=== PATIENT | male | born 1970 | race Caucasian/White ===

== ENCOUNTER 2018-12-13 08:25 | Emergency (ER) ==
[2018-12-13 08:30] VITALS: BP 160/94; TEMP 99.1; BMI 35.1
--- NOTE | 2018-12-13 09:36 | US ---
EXAM: Bilateral lower extremity venous Doppler History: Bilateral lower extremity pain. Technique: Multiple sonographic images through the bilateral lower extremities were obtained. Color duplex Doppler was used to interrogate vascular flow. Findings: The bilateral common femoral, greater saphenous, profunda, superficial femoral, popliteal, peroneal, posterior tibial and anterior tibial veins demonstrate spontaneous flow with normal compre ssion and normal augmentation. Impression: No sonographic evidence for deep venous thrombosis
--- NOTE | 2018-12-13 10:10 | ED.PDOC ---
General ED Provider: Dr. OLAMIDE CARMEN Chief Complaint: Extremity Swelling/Pain Stated Complaint: bilateral lower ext pain Time Seen by Physician: 08:30 Mode of Arrival: Walk-In Information Source: Patient, Other [facility] Nursing and Triage Documentation Reviewed and Agree: Yes Does patient meet sepsis criteria?: No System Inflammatory Response Syndrome: Not Applicable Sepsis Protocol: For patient's 13 years and over: Temp is 96.8 and below OR 101 and greater Pulse >90 BPM Resp >20/minute Acutely Altered Mental Status Are patient's symptoms suggestive of a new infection, such as: -Pneumonia -Skin, Soft Tissue -Endocarditis -UTI -Bone, Joint Infection -Implantable Device -Acute Abdominal Infection -Wound Infection -Meningitis -Blood Stream Catheter Infection -Unknown Review of Systems - Review Of Systems Constitutional: Reports: No symptoms Eyes: Reports: No symptoms Ears, Nose, Mouth, Throat: Reports: No symptoms Respiratory: Reports: No symptoms Cardiac: Reports: No symptoms GI: Reports: No symptoms : Reports: No symptoms Musculoskeletal: Reports: Other (leg pain) Skin: Reports: No symptoms Neurological: Reports: No symptoms Endocrine: Reports: No symptoms Hematologic/Lymphatic: Reports: No symptoms All Other Systems: Reviewed and Negative Past Medical History - Past Medical History Previously Healthy: Yes Endocrine: Reports: None Cardiovascular: Reports: None Respiratory: Reports: None Hematological: Reports: None Gastrointestinal: Reports: None Genitourinary: Reports: None Neuro/Psych: Reports: None Musculoskeletal: Reports: None Cancer: Reports: None - Surgical History General Surgical History: Reports: Unknown - Family History Family History: Reports: Unknown - Social History Smoking Status: Former smoker Hx Substance Use: Yes (see above) Alcohol Screening: None Physical Exam - Physical Exam Appearance: Well-appearing, No pain distress, Well-nourished Eyes: BRUCE, EOMI, Conjunctiva clear ENT: Ears normal, Nose normal, Oropharynx normal Respiratory: Airway patent, Breath sounds clear, Breath sounds equal, Respirations nonlabored Cardiovascular: RRR, Pulses normal, No rub, No murmur GI/: Soft, Nontender, No masses, Bowel sounds normal, No Organomegaly Musculoskeletal: Normal strength, ROM intact, No edema, No calf tenderness Skin: Warm, Dry, Normal color Neurological: Sensation intact, Motor intact, Reflexes intact, Cranial nerves intact, Alert, Oriented Psychiatric: Affect appropriate, Mood appropriate Interpretation - Radiology Interpretation Radiology Interpretation By: Radiologist Radiology Results: No acute changes Critical Care Note - Critical Care Note Total Time (mins): 0 Course - Course Hematology/Chemistry: 12/13/18 09:25 12/13/18 09:25 Orders, Labs, Meds: Lab Review 12/13/18 12/13/18 09:25 09:25 WBC 5.49 RBC 5.07 Hgb 15.4 Hct 44.9 MCV 88.6 MCH 30.4 MCHC 34.3 RDW Coeff of [place] 14.2 Plt Count 116 L Immature Gran % (Auto) 0.4 Neut % (Auto) 52.2 Lymph % (Auto) 32.8 [place] % (Auto) 12.2 H Eos % (Auto) 2.0 Baso % (Auto) 0.4 Immature Gran # (Auto) 0.0 Neut # (Auto) 2.9 Lymph # (Auto) 1.8 [place] # (Auto) 0.7 Eos # (Auto) 0.1 Baso # (Auto) 0.0 Sodium 138.0 Potassium 3.82 Chloride 101.7 Carbon Dioxide 28.0 Anion Gap 12.12 BUN 16.1 Creatinine 0.89 Estimated GFR (MDRD) 91.00 BUN/Creatinine Ratio 18.08 Glucose 97.0 Calcium 8.64 Total Bilirubin 0.79 AST 68.7 H ALT 76.2 H Alkaline Phosphatase 58.6 Total Protein 7.13 Albumin 4.08 Globulin 3.05 Albumin/Globulin Ratio 1.33 Orders Category Date Time Status CBC W/ AUTO DIFF Stat LAB 12/13/18 09:25 Completed COMPREHENSIVE METABOLIC PANEL Stat LAB 12/13/18 09:25 Completed U/S VENOUS SCAN ERIKA LEGS Stat RADS 12/13/18 08:43 Completed Vital Signs: Temp Pulse Resp BP Pulse Ox 12/13/18 08:28 99.1 F 96 H 20 160/94 H 97 Departure - Departure Time of Disposition: 10:09 (banormal lf is due to hep c ) Disposition: HOME SELF-CARE Discharge Problem: Leg pain, bilateral Instructions: Leg Pain (ED) Condition: Good Pt referred to PMD for follow-up: Yes IPMP verified?: No Additional Instructions: Please call your Family Physician as soon as possible to schedule a follow-up appointment. Allergies/Adverse Reactions: Allergies ampicillin Adverse Reaction (Verified 12/13/18 08:30) cephalexin monohydrate [From Zoombu] Adverse Reaction (Verified 12/13/18 08:30) Penicillins Adverse Reaction (Verified 12/13/18 08:30) Home Medications: Ambulatory Orders 1 [No Reported Medications] 12/13/18
== END 2018-12-13 10:12 | disposition home or self-care (01) ==
LOC: ED 08:25
DX: M79.605 Pain in left leg (principal); M79.604 Pain in right leg; M79.89 Other specified soft tissue disorders
CPT/HCPCS: 36415; 80053; 85025; 99283

== ENCOUNTER 2023-04-21 09:04 | Observation (INO) ==
--- NOTE | 2023-04-21 09:25 | ED.PDOC ---
General ED Provider: Dr. CARMELLA ROMAN MD Chief Complaint: Extremity Swelling/Pain Stated Complaint: swelling 52-year-old male presents the emergency department for evaluation of generalized swelling. 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 Reports sobriety from drugs, alcohol and all other vices for many years. Reports in the past 2 months he has gained 40 pounds. Reports that his eyes are getting sunken in, he is short of breath with any exertion. States that his legs are swollen to the point that he cannot wear shoes and his leg skin is cracking. Reports intermittent scrotal pain and swelling. States that his abdomen is markedly distended and this is all new for him. States that he has intermittent black stools but otherwise has yellow watery stools. Has not had a formed stool for weeks. Reports that he is generally just not feeling well. Does not have a primary care provider. Is seeing an oncologist in [place]. Time Seen by Provider: 04/21/23 09:20 Mode of Arrival: Walk-In Information Source: Patient Exam Limitations: No limitations Nursing and Triage Documentation Reviewed and Agree: Yes Review of Systems Review Of Systems Constitutional: Reports No symptoms, Malaise and Weakness Cardiac: Reports Edema GI: Reports Abdomen distended All Other Systems: Reviewed and Negative [facility] Medical History Hepatitis C virus B19.20 - Unspecified viral hepatitis C without hepatic coma (ICD-10) Social History Smoking and tobacco status: Current some day smoker Surgical History Status post appendectomy Z90.49 - Acquired absence of other specified parts of digestive tract (ICD- 10) Physical Exam Physical Exam Appearance: Reports Well-appearing Ill-appearing: Mild Pain Distress: None Eyes: Reports EOMI ENT: Reports Oropharynx normal Neck: Supple Respiratory: Reports Airway patent Cardiovascular: Reports RRR and Pulses normal GI/: Reports Other (Marked abdominal distention) Musculoskeletal: Reports Edema Skin: Reports Warm and Dry Neurological: Reports Cranial nerves intact, Alert and Oriented Psychiatric: Reports Affect appropriate Interpretation EKG Interpretation EKG Interpretation By: ED Physician Time of EKG #1: 09:50 Rate: Normal Rhythm: Sinus Ectopy: None [employer]: NL ST Segment: Normal Critical Care Note Critical Care Note Total Critical Care Time (mins): 0 Course Course 04/21/23 09:32 04/21/23 09:32 Orders, Labs, Meds: Lab Review 04/21/23 04/21/23 04/21/23 09:32 09:35 10:45 WBC 4.11 L RBC 3.76 L Hgb 12.4 L Hct 37.6 L MCV 100.0 H MCH 33.0 H MCHC 33.0 RDW Coeff of [place] 15.1 H Plt Count 51 L Immature Gran % (Auto) 0.2 Neut % (Auto) 55.2 Lymph % (Auto) 26.8 [place] % (Auto) 13.9 H Eos % (Auto) 3.4 Baso % (Auto) 0.5 Neut # (Auto) 2.3 Lymph # (Auto) 1.1 [place] # (Auto) 0.6 Eos # (Auto) 0.1 Baso # (Auto) 0.0 Immature Gran # (Auto) 0.0 PT 13.6 H INR 1.32 Sodium 136.0 Potassium 4.01 Chloride 105.8 Carbon Dioxide 26.5 Anion Gap 7.71 BUN 10.7 Creatinine 0.78 Estimated GFR (MDRD) 105.00 BUN/Creatinine Ratio 13.71 Glucose 93.9 Lactic Acid 0.98 Calcium 7.89 L Total Bilirubin 3.50 H AST 119.3 H ALT 51.2 H Alkaline Phosphatase 91.9 Troponin I < 0.012 NT-Pro-B Natriuret Pep 204 Total Protein 6.70 Albumin 2.97 L Globulin 3.73 Albumin/Globulin Ratio 0.79 Urine Color Elsi Urine Clarity Clear Urine pH 6.0 Ur Specific [place] 1.025 Urine Protein Negative Urine Glucose (UA) Negative Urine Ketones Trace H Urine Blood Negative Urine Nitrite Negative Urine Bilirubin 1+ H Urine Urobilinogen 0.2 Ur Leukocyte Esterase Negative Urine Microscopic WBC 0-2 Ur Squamous Epith Cells 0-2 SARS CoV-2 RNA Rapid ARVIN Negative Orders Category Date Time Status ADMIT PATIENT INPATIENT .TO [facility] (MONITORED BED) ADMISSION 04/21/23 11:18 Active EKG-(ED ONLY) Stat CARDIO 04/21/23 09:20 Completed NPO REMINDER: IMAGING ONCE CARE 04/21/23 10:35 Completed TELEMETRY MONITORING TELE CARE 04/21/23 11:18 Active ED IV/MEDIPORT/POWERPORT .ONCE EMERGENCY 04/21/23 10:37 Active CBC W/ AUTO DIFF Stat LAB 04/21/23 09:32 Completed COMPREHENSIVE METABOLIC PANEL Stat LAB 04/21/23 09:32 Completed COVID [SARS COV-2 RNA RAPID ARVIN] Stat LAB 04/21/23 10:45 Completed ED PROBNP [NT-PROBNP(ED)] Stat LAB 04/21/23 09:32 Completed LACTIC ACID Stat LAB 04/21/23 09:32 Completed PT WITH INR Stat LAB 04/21/23 09:32 Completed TROPONIN I Stat LAB 04/21/23 09:32 Completed UA [URINALYSIS C & S IF INDICATED] Stat LAB 04/21/23 09:35 Completed 0.9 % Sodium Chloride [Saline Flush] Meds 04/21/23 10:37 Active 1 syr IVF PRN PRN Furosemide [Lasix] Meds 04/21/23 10:37 Discontinued 40 mg IVP ONCE STA Spironolactone [Aldactone] Meds 04/21/23 10:37 Discontinued 25 mg PO ONCE ONE CHEST, 2 VIEWS PA & LAT Stat RADS 04/21/23 09:[address] ABDOMEN/PELVIS W CONTRAST Stat RADS 04/21/23 10:35 Completed Medications Generic Name Dose Route Start Last Admin Trade Name Freq PRN Reason Stop Dose Admin Sodium Chloride 1 syr 04/21/23 10:37 04/21/23 11:07 0.9% Sodium Chloride 10 Ml Disp.Syrin IVF 1 syr PRN PRN Administration To flush IV Discontinued Medications Generic Name Dose Route Start Last Admin Trade Name Freq PRN Reason Stop Dose Admin Furosemide 40 mg 04/21/23 10:37 04/21/23 11:07 Furosemide Inj 40 Mg/4 Ml Vial IVP 04/21/23 10:38 40 mg ONCE STA Administration Spironolactone 25 mg 04/21/23 10:37 04/21/23 11:09 Spironolactone 25 Mg Tablet PO 04/21/23 10:38 25 mg ONCE ONE Administration Laboratory evaluation shows findings consistent with advancing liver disease. Patient with a bilirubin of 3.5, elevated transaminases. Patient with persistent thrombocytopenia. Normal INR. No evidence of infection. X-ray of the chest is clear. Cardiac biomarkers are also normal, EKG is reassuring. 10:29 AM Case was discussed with factory superintendent Dr. Mitchell at [facility]. His recommendation is for a regimen of furosemide and spironolactone as well as setting up outpatient follow-up. 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 We will contact the clinic to assist with outpatient follow-up. 10:38 AM Case was discussed with local hospitalist team. They feel like the patient would benefit from paracentesis. We do not have capacity to perform that in our facility. They recommend transfer to a facility with higher level of care. We do have interventional radiology but they do not work again until Tuesday. Additionally we do not have specimen collection containers or the ability to obtain the fluid at our facility. Patient was given furosemide and spironolactone in the emergency department. Attempting to arrange transfer to outlying facility. 10:39 AM [facility] contacted for transfer. 10:43 AM While on the phone with [facility] [place] initiating transfer, the hospitalist reviewed the case with the overseeing physician who believes the patient would be okay to manage at our facility with diuresis. We will cancel attempts to transfer to [facility] [place]. She would like him to have a CT of his abdomen prior to admission. CT is been performed at this time. 11:22 AM CTA negative for acute pathology. Shows cirrhosis, ascites, portal hypertension. Patient to be admitted to our facility for diuresis. No acute abnormalities identified right now that require further intervention outside of aforementioned diuresis. Vital Signs: Temp Pulse Resp BP Pulse Ox 04/21/23 09:08 98.8 F 97 18 156/99 H 99 Discharge Plan Discharge Patient Disposition: ADMITTED INPATIENT Discharge Problem: Ascites, Cirrhosis Prescriptions: No Action No Reported Medications Did you review [place] COLOR ADVISER for ALL controlled substances?: Not Applicable ED Provider: CARMELLA ROMAN Physician Progress Note: []
[2023-04-21 09:46] LABS: BASOPHILS % (AUTO) 0.5 % (0.0-3.0); EOSINOPHILS # (AUTO) 0.1 K/ul (0.0-0.7); EOSINOPHILS % (AUTO) 3.4 % (0.0-7.0); HEMATOCRIT 37.6 % (42.0-52.0); HEMOGLOBIN 12.4 g/dl (14.0-18.0); IMMATURE GRANULOCYTE % (AUTO) 0.2 % (0.0-5.0); LYMPHOCYTES # (AUTO) 1.1 K/uL (0.60-3.4); LYMPHOCYTES % (AUTO) 26.8 (10.0-50.0); MONOCYTES # (AUTO) 0.6 K/uL (0.4-2.0); MONOCYTES % (AUTO) 13.9 (0-10); NEUTROPHILS # (AUTO) 2.3 K/ul (2.0-6.9); NEUTROPHILS % (AUTO) 55.2 % (42.2-75.2); PLATELET COUNT 51 10^3/uL (140-440); RDW COEFFICIENT OF VARIATION 15.1 % (11.6-14.8); RED BLOOD COUNT 3.76 10^6/ul (4.70-6.10); WHITE BLOOD COUNT 4.11 K/ul (4.2-10.2)
--- NOTE | 2023-04-21 09:52 | DI ---
EXAM: CHEST RADIOGRAPH TECHNIQUE: Two views. Frontal and lateral. HISTORY: Cough. COMPARISON: None. FINDINGS: The lungs are clear. The heart size is normal. Osseous structures are unremarkable IMPRESSION: 1. Normal Exam.
[2023-04-21 09:55] LABS: BILIRUBIN,URINE 1+ (NEGATIVE); CLARITY,URINE Clear (CLEAR); COLOR,URINE Amber (YELLOW); GLUCOSE, URINE (UA) Negative (NEGATIVE); KETONES,URINE Trace (NEGATIVE); LEUKOCYTE ESTERASE ,URINE Negative (NEGATIVE); NITRITE,URINE Negative (NEGATIVE); PROTEIN,URINE Negative (NEGATIVE); URINE, BLOOD Negative (NEGATIVE); UROBILINOGEN,URINE 0.2 (0.2)
[2023-04-21 09:56] LABS: ALANINE AMINOTRANSFERASE 51.2 U/L (0-50); ALBUMIN 2.97 g/dL (3.5-5.0); ALKALINE PHOSPHATASE 91.9 U/L (38-126); ASPARTATE AMINO TRANSFERASE 119.3 U/L (17-59); BLOOD UREA NITROGEN 10.7 mg/dL (9-20); CALCIUM 7.89 mg/dL (8.4-10.2); CARBON DIOXIDE 26.5 mmol/L (22-30.0); CHLORIDE 105.8 mmol/L (98-107); CREATININE 0.78 mg/dL (0.60-1.10); GLUCOSE 93.9 mg/dL (74-106); POTASSIUM 4.01 mmol/L (3.5-5.1)
[2023-04-21 10:01] LABS: SQUAMOUS EPITHELIAL CELL,UR 0-2 (0-5); URINE WBC, MICROSCOPIC 0-2 (0-2)
[2023-04-21 10:08] LABS: TROPONIN I < 0.012 ng/ml (0.0000-0.120)
[2023-04-21 10:13] LABS: PROTHROMBIN TIME 13.6 SEC (9.3-11.0)
[2023-04-21] MEDS ORDERED: ALDACTONE PO ONE (10:37)
[2023-04-21] MEDS ORDERED: LASIX IVP STA (10:37)
[2023-04-21 11:21] LABS: SARS COV-2 RNA RAPID NAAT NEGATIVE (NEGATIVE)
--- NOTE | 2023-04-21 11:21 | CT ---
EXAM: CT ABDOMEN AND PELVIS WITH CONTRAST TECHNIQUE: CT acquisition of the abdomen and pelvis from the lower thorax through the pelvis followin g IV contrast administration. 2-D coronal and sagittal reformatted images were obtained from the axi al source images. IV Contrast: 50 mL of Omnipaque 350. Oral Contrast: None. CT Dose Reduction Techniques Performed: Yes. COMPARISON: 02/01/2023 HISTORY: Abdominal distension FINDINGS: LUNG BASES: No abnormality identified. LIVER: The liver is heterogeneous and nodular, consistent with cirrhosis. A recanalized periumbilica l vein and multiple upper abdominal varices are identified, including para esophageal varices or GALLBLADDER: No abnormality is identified. PANCREAS: No mass or evidence of pancreatitis. No duct dilation. SPLEEN: The the spleen measures 17 cm in craniocaudal diameter. ADRENALS: Normal. KIDNEYS/URETERS: No suspicious mass, stone, or hydronephrosis. The left multifocal renal cortical thi nning is identified. GI TRACT: No bowel wall thickening or dilation. The appendix is not identified. URINARY BLADDER: Normal. REPRODUCTIVE ORGANS: No abnormality identified. LYMPH NODES: No lymphadenopathy. VASCULATURE: No significant aortic aneurysm. The visualized portal and mesenteric veins appear with in normal limits. The IVC is normal. OTHER: Small ascites is identified. OSSEOUS/SOFT TISSUES: No suspicious osteolytic, or osteoblastic lesion. No acute fracture. IMPRESSION: 1. No acute findings in the abdomen or pelvis. 2. Cirrhosis with stigmata of portal hypertension. All CT scans are performed using dose optimization techniques as appropriate to the performed exam an d include at least one of the following: Automated exposure control, adjustment of the mA and/or kV according t o size, and the use of iterative reconstruction technique.
[2023-04-21] MEDS ORDERED: TYLENOL PO PRN (12:16)
[2023-04-21 13:02] VITALS: BMI 38.5
[2023-04-21] MEDS: LASIX IVP SCH ×2 (13:30→20:06)
--- NOTE | 2023-04-21 13:41 | PCM ---
Date of Service Date Seen by Provider: 04/21/23 Time Seen by Provider: 13:10 Admit Day/Time Admission Date: 04/21/23 Reason for Admission Chief Complaint: ASCITES,LIVER CIRRHOSIS Hospital Provider Hospital Provider[facility] History of Present Illness History of Present Illness: 52 yo male presented to the ER today with complaints of worsening swelling. 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 States the only specialist he is seeing is an [facility] which is why he was here today to have some lab work done and decided he needed to be seen in the ER. He does not have a PCP and does not take any regular medications including diuretics. Had previously been living in a camper and now resides with his 91 yo grandmother that he reports is not a good situation. States he has constant pain in his back and abdomen. Has gained 40 lbs in a 2 month period. He was seen in our ER back in January in which he was setup with oncology at that time due to thrombocytopenia. He denies SOB, fever, chest pain, or other symptoms. Case Discussed With Case Discussed With: Patient's case was discussed with the ER Physicians, Dr. Anderson. [facility] Medical History Hepatitis C virus B19.20 - Unspecified viral hepatitis C without hepatic coma (ICD-10) Surgical History Status post appendectomy Z90.49 - Acquired absence of other specified parts of digestive tract (ICD- 10) Family History (Updated 04/21/23 @ 12:19 by JORDANA HO RN) Mother Aortic aneurysm and dissection FATHER Stroke Social History (Updated 04/21/23 @ 12:20 by JORDANA HO RN) Smoking and tobacco status: Former smoker Alcohol intake: former Allergies Allergies Allergy/AdvReac Type Severity Reaction Status Date / Time ampicillin AdvReac Verified 04/21/23 09:21 cephalexin monohydrate AdvReac Verified 04/21/23 09:21 [From Keflex] Penicillins AdvReac Verified 04/21/23 09:21 Current Medications Home Medications 1 [No Reported Medications] 04/21/23 [History Confirmed 04/21/23 Last Taken Unknown] Home Acetaminophen (Acetaminophen 325 Mg Tablet) 650 mg PO Q4H PRN PRN Reason: Mild Pain Furosemide (Furosemide Inj 40 Mg/4 Ml Vial) 40 mg IVP Q8HR [facility] Sodium Chloride (0.9% Sodium Chloride 10 Ml Disp.Syrin) 1 syr IVF PRN PRN PRN Reason: To flush IV Last Admin: 04/21/23 11:07 Dose: 1 syr Spironolactone (Spironolactone 25 Mg Tablet) 50 mg PO DAILY [facility] Tobramycin Sulfate (Tobramycin Sulfate 5 Ml Opth Meggan) 2 drop EACHEYE Q4HR ZULEYMA Stop: 04/24/23 16:59 Discontinued Medications Furosemide (Furosemide Inj 40 Mg/4 Ml Vial) 40 mg IVP ONCE STA Stop: 04/21/23 10:38 Last Admin: 04/21/23 11:07 Dose: 40 mg Spironolactone (Spironolactone 25 Mg Tablet) 25 mg PO ONCE ONE Stop: 04/21/23 10:38 Last Admin: 04/21/23 11:09 Dose: 25 mg Review of Systems Constitutional: Reports Fatigue, Recent Weight Gain (40 lbs, 2 month period) and Weakness Head: Reports Normocephalic and Atraumatic Eyes: Reports No symptoms Ears: Reports No symptoms Nose: Reports No symptoms Mouth: Reports No symptoms Throat: Reports No symptoms Cardiovascular: Reports Edema (abdomen, legs) Respiratory: Reports No symptoms Gastrointestinal: Reports Diarrhea and Abdominal pain Genitourinary: Reports No Symptoms Musculoskeletal: Reports No symptoms Endocrine: Reports No symptoms Hematology: Reports No symptoms Immunology: Reports No symptoms Neurological: Reports Weakness Psychiatric: Reports No symptoms Physical examination Most Recent Vital Signs: Most Recent Vital Signs Temperature 97.7 F 04/21/23 12:12 Temperature Source Oral 04/21/23 12:12 Temperature Source Infrared 04/21/23 09:08 Pulse Rate 90 04/21/23 12:12 Respiratory Rate 22 H 04/21/23 12:12 Blood Pressure 156/99 H 04/21/23 09:08 Blood Pressure Left Arm 145/86 04/21/23 12:12 Blood Pressure Position Supine 04/21/23 12:12 O2 Sat by Pulse Oximetry 97 04/21/23 12:12 Oxygen Delivery Method Room Air 04/21/23 12:12 Height 5 ft 8 in 04/21/23 12:12 Weight 253 lb 8 oz 04/21/23 12:12 Telemetry Type Remote Telemetry 04/21/23 13:00 Telemetry Monitoring Started 04/21/23 13:00 Telemetry Heart Rate 87 04/21/23 13:00 Telemetry SPO2 97 09/28/15 01:00 EKG [place] Interval 0.13 04/21/23 13:00 EKG QRS Interval 0.07 04/21/23 13:00 Telemetry Strip Reading NSR 04/21/23 13:00 Appearance: Positive No Apparent Distress, Alert and Oriented x3 and Ill- Appearing Skin: Positive Jaundice and Warm HEENT: Positive Normocephalic and PERRLA Neck: Positive Supple and Midline Trachea Chest/Lungs: Positive Symmetrical With Equal Breath Sounds, Clear to Auscultation Bilaterally and Good Air Movement all 4 Lung Baires Heart: Positive RRR and Pulses Normal GI/: Positive Soft, Nontender, Bowel Sounds Normal, Tender and Hepatomegaly Musculoskeletal: Positive Not Examined Extremities: Positive Edema (+2-3 pitting edema), Intact Peripheral Pulses, Stable Joints Without Laxity and Good ROM in All Joints Neurological: Positive Sensation Intact, Motor intact, Reflexes Intact, Alert, Oriented and Muscle Strength 5/5 in Upper and Lower Extremities Bilaterally Psychiatric: Positive Oriented x4, Appropriate Mood, Appropriate Affect, Intact Memory, Good Short-Term Recall, Good Long-Term Recall, Normal Judgement and Normal Insight Labs This Visit Labs This Visit: Labs This Visit 04/21/23 04/21/23 04/21/23 09:32 09:35 10:45 WBC 4.11 L RBC 3.76 L Hgb 12.4 L Hct 37.6 L MCV 100.0 H MCH 33.0 H MCHC 33.0 RDW Coeff of Alvarado 15.1 H Plt Count 51 L Immature Gran % (Auto) 0.2 Neut % (Auto) 55.2 Lymph % (Auto) 26.8 [place] % (Auto) 13.9 H Eos % (Auto) 3.4 Baso % (Auto) 0.5 Neut # (Auto) 2.3 Lymph # (Auto) 1.1 [place] # (Auto) 0.6 Eos # (Auto) 0.1 Baso # (Auto) 0.0 Immature Gran # (Auto) 0.0 PT 13.6 H INR 1.32 Sodium 136.0 Potassium 4.01 Chloride 105.8 Carbon Dioxide 26.5 Anion Gap 7.71 BUN 10.7 Creatinine 0.78 Estimated GFR (MDRD) 105.00 BUN/Creatinine Ratio 13.71 Glucose 93.9 Lactic Acid 0.98 Calcium 7.89 L Total Bilirubin 3.50 H AST 119.3 H ALT 51.2 H Alkaline Phosphatase 91.9 Troponin I < 0.012 NT-Pro-B Natriuret Pep 204 Total Protein 6.70 Albumin 2.97 L Globulin 3.73 Albumin/Globulin Ratio 0.79 Urine Color Elsi Urine Clarity Clear Urine pH 6.0 Ur Specific [place] 1.025 Urine Protein Negative Urine Glucose (UA) Negative Urine Ketones Trace H Urine Blood Negative Urine Nitrite Negative Urine Bilirubin 1+ H Urine Urobilinogen 0.2 Ur Leukocyte Esterase Negative Urine Microscopic WBC 0-2 Ur Squamous Epith Cells 0-2 SARS CoV-2 RNA Rapid ARVIN Negative Imaging Imaging: EXAM: CT ABDOMEN AND PELVIS WITH CONTRAST FINDINGS: LUNG BASES: No abnormality identified. LIVER: The liver is heterogeneous and nodular, consistent with cirrhosis. A recanalized periumbilical vein and multiple upper abdominal varices are identified, including para esophageal varices or GALLBLADDER: No abnormality is identified. PANCREAS: No mass or evidence of pancreatitis. No duct dilation. SPLEEN: The the spleen measures 17 cm in craniocaudal diameter. ADRENALS: Normal. KIDNEYS/URETERS: No suspicious mass, stone, or hydronephrosis. The left multifocal renal cortical thinning is identified. GI TRACT: No bowel wall thickening or dilation. The appendix is not identified. URINARY BLADDER: Normal. REPRODUCTIVE ORGANS: No abnormality identified. LYMPH NODES: No lymphadenopathy. VASCULATURE: No significant aortic aneurysm. The visualized portal and mesenteric veins appear within normal limits. The IVC is normal. OTHER: Small ascites is identified. OSSEOUS/SOFT TISSUES: No suspicious osteolytic, or osteoblastic lesion. No acute fracture. IMPRESSION: 1. No acute findings in the abdomen or pelvis. 2. Cirrhosis with stigmata of portal hypertension. Review Statement Review Statement: I have independently reviewed and interpreted the labs/EKGs/imaging that were ordered by the ER provider. I have reviewed all outside records that are available currently in our EMR including imaging/notes/labs from previous visits. Plan Plan: 1. Fluid retention in setting of cirrhosis with ascites - lasix 40 mg Q8H, spironolactone 50 mg PO daily, checking echo for heart involvement, I&O, daily weight, 1800 fluid restriction with cardiac diet 2. Thrombocytopenia - follows with oncology in [place] 3. Bacterial Conjunctivitis - tobramycin gtts Q4H DVT Prophylaxis: Up with assist Time Spent: Greater than 80 minutes spent with patient, 50% of the time spent with this patient was devoted to counseling and coordination of care. [facility] minutes spent discussing advance care planning. Disposition: Admit to: Med/Surg Observation DNR Discussed Plan of Care with Dr. Mayco Hernandez. Medications Medication Orders: Medications Ordered Category Date Time Status 0.9 % Sodium Chloride [Saline Flush] Meds 04/21/23 10:37 Active 1 syr IVF PRN PRN Acetaminophen [Tylenol] Meds 04/21/23 12:16 Active 650 mg PO Q4H PRN Furosemide [Lasix] Meds 04/21/23 13:00 Active 40 mg IVP Q8HR Spironolactone [Aldactone] Meds 04/22/23 09:00 Active 50 mg PO DAILY
[2023-04-21] MEDS: TOBREX 0.3% EACHEYE SCH ×2 (16:56→20:06)
[2023-04-21 18:13] LABS: AMPHETAMINE SCREEN,URINE NEGATIVE (NEGATIVE); BARBITURATE SCREEN,URINE NEGATIVE (NEGATIVE); BENZODIAZEPINES SCREEN,URINE NEGATIVE (NEGATIVE); CANNABINOID SCREEN,URINE POSITIVE (NEGATIVE); COCAIN SCREEN,URINE NEGATIVE (NEGATIVE); METHADONE URINE SCREEN NEGATIVE (NEGATIVE); METHAMPHETAMINES SCREEN,URINE NEGATIVE (NEGATIVE); OPIATE SCREEN,URINE NEGATIVE (NEGATIVE); OXYCODONE URINE SCREEN NEGATIVE (NEGATIVE); PHENCYCLIDINE SCREEN,URINE NEGATIVE (NEGATIVE); TRICYCLIC ANTIDEPRESSANTS URIN NEGATIVE (NEGATIVE)
[2023-04-22] MEDS: TOBREX 0.3% EACHEYE SCH ×6 (01:50→20:27)
[2023-04-22] MEDS: LASIX IVP SCH ×3 (05:20→20:27)
[2023-04-22 06:42] LABS: BASOPHILS % (AUTO) 0.5 % (0.0-3.0); EOSINOPHILS # (AUTO) 0.1 K/ul (0.0-0.7); EOSINOPHILS % (AUTO) 3.2 % (0.0-7.0); HEMATOCRIT 38.9 % (42.0-52.0); HEMOGLOBIN 13.1 g/dl (14.0-18.0); IMMATURE GRANULOCYTE % (AUTO) 0.2 % (0.0-5.0); LYMPHOCYTES # (AUTO) 1.1 K/uL (0.60-3.4); LYMPHOCYTES % (AUTO) 26.3 (10.0-50.0); MEAN CORPUSCULAR HEMOGLOBIN 33.5 pg (27.0-31.0); MEAN CORPUSCULAR HGB CONC 33.7 (31.8-35.4); MEAN CORPUSCULAR VOLUME 99.5 fl (80.0-94.0); MONOCYTES # (AUTO) 0.4 K/uL (0.4-2.0); MONOCYTES % (AUTO) 10.8 (0-10); NEUTROPHILS # (AUTO) 2.4 K/ul (2.0-6.9); PLATELET COUNT 51 10^3/uL (140-440); RED BLOOD COUNT 3.91 10^6/ul (4.70-6.10); WHITE BLOOD COUNT 4.07 K/ul (4.2-10.2)
[2023-04-22 06:48] LABS: ALANINE AMINOTRANSFERASE 53.5 U/L (0-50); ALBUMIN 3.05 g/dL (3.5-5.0); ALKALINE PHOSPHATASE 104.1 U/L (38-126); BILIRUBIN,TOTAL 4.19 mg/dL (0.2-1.3); BLOOD UREA NITROGEN 11.2 mg/dL (9-20); CALCIUM 8.14 mg/dL (8.4-10.2); CARBON DIOXIDE 30.7 mmol/L (22-30.0); CREATININE 0.94 mg/dL (0.60-1.10); GLUCOSE 92.3 mg/dL (74-106); POTASSIUM 3.44 mmol/L (3.5-5.1); SODIUM 136.8 mmol/L (134.5-145); TOTAL PROTEIN 6.82 g/dL (6.3-8.2)
[2023-04-22] MEDS: ALDACTONE PO SCH (08:47)
--- NOTE | 2023-04-22 10:45 | PCM.PROG ---
Date/Time Seen Date Seen by Provider: 04/22/23 Time Seen by Provider: 08:50 Provider Provider[facility] Chief Complaint Chief Complaint: ASCITES,LIVER CIRRHOSIS Subjective Subjective: Feeling some better today. Reporting pain to R side of abdomen. Has been there for months. States his legs and stomach do not feel as tight. Objective Appearance: Positive No Apparent Distress, Alert and Oriented x3 and Ill- Appearing Chest/Lungs: Positive Symmetrical With Equal Breath Sounds, Clear to Auscultation Bilaterally and Good Air Movement all 4 Lung Baires Heart: Positive RRR and Pulses Normal GI/: Positive Soft, Nontender, Bowel Sounds Normal and Hepatomegaly Neurological: Positive Sensation Intact, Motor intact, Reflexes Intact, Alert, Oriented and Muscle Strength 5/5 in Upper and Lower Extremities Bilaterally Vital Signs Vital Signs: Vital Signs: Last 24 Hours 04/21/23 12:12 04/21/23 13:00 04/21/23 13:09 Temperature 97.7 F Temperature Source Oral Pulse Rate 90 Pulse Rate [Apical] Respiratory Rate 22 H 22 H Blood Pressure Blood Pressure Mean Blood Pressure Left Arm 145/86 Blood Pressure Location Blood Pressure Position Supine O2 Sat by Pulse Oximetry 97 Oxygen Delivery Method Room Air Room Air Height 5 ft 8 in Weight 253 lb 8 oz Telemetry Type Remote Telemetry Telemetry Monitoring Started Telemetry Heart Rate 87 EKG PA Interval 0.13 EKG QRS Interval 0.07 Telemetry Strip Reading NSR 04/21/23 14:00 04/21/23 14:00 04/21/23 15:00 Temperature 97.7 F Temperature Source Oral Pulse Rate 99 Pulse Rate [Apical] Respiratory Rate 16 Blood Pressure 146/84 H Blood Pressure Mean 104 Blood Pressure Left Arm Blood Pressure Location Left Arm Blood Pressure Position Supine O2 Sat by Pulse Oximetry 98 Oxygen Delivery Method Room Air Room Air Room Air Height Weight Telemetry Type Telemetry Monitoring Telemetry Heart Rate EKG PA Interval EKG QRS Interval Telemetry Strip Reading 04/21/23 16:00 04/21/23 17:00 04/21/23 18:00 Temperature 97.9 F Temperature Source Oral Pulse Rate 89 Pulse Rate [Apical] Respiratory Rate 17 Blood Pressure 146/80 H Blood Pressure Mean 102 Blood Pressure Left Arm Blood Pressure Location Left Arm Blood Pressure Position Supine O2 Sat by Pulse Oximetry 96 Oxygen Delivery Method Room Air Room Air Room Air Height Weight Telemetry Type Telemetry Monitoring Telemetry Heart Rate EKG PA Interval EKG QRS Interval Telemetry Strip Reading 04/21/23 18:00 04/21/23 19:00 04/21/23 19:00 Temperature Temperature Source Pulse Rate Pulse Rate [Apical] Respiratory Rate Blood Pressure Blood Pressure Mean Blood Pressure Left Arm Blood Pressure Location Blood Pressure Position O2 Sat by Pulse Oximetry Oxygen Delivery Method Room Air Room Air Height Weight Telemetry Type Remote Telemetry Telemetry Monitoring Continues Telemetry Heart Rate 101 H EKG PA Interval 0.18 EKG QRS Interval 0.[address] 04/21/23 20:00 04/21/23 20:00 04/21/23 21:00 Temperature Temperature Source Pulse Rate Pulse Rate [Apical] 88 Respiratory Rate 18 Blood Pressure Blood Pressure Mean Blood Pressure Left Arm Blood Pressure Location Blood Pressure Position O2 Sat by Pulse Oximetry Oxygen Delivery Method Room Air Room Air Room Air Height Weight Telemetry Type Telemetry Monitoring Telemetry Heart Rate EKG PA Interval EKG QRS Interval Telemetry Strip Reading 04/21/23 21:30 04/21/23 22:00 04/21/23 23:00 Temperature 98.0 F Temperature Source Temporal Artery Scan Pulse Rate 88 Pulse Rate [Apical] Respiratory Rate 18 Blood Pressure 135/89 Blood Pressure Mean 104 Blood Pressure Left Arm Blood Pressure Location Left Arm Blood Pressure Position Supine O2 Sat by Pulse Oximetry 96 Oxygen Delivery Method Room Air Room Air Room Air Height Weight Telemetry Type Telemetry Monitoring Telemetry Heart Rate EKG PA Interval EKG QRS Interval Telemetry Strip Reading 04/22/23 00:00 04/22/23 00:51 04/22/23 00:58 Temperature Temperature Source Pulse Rate Pulse Rate [Apical] Respiratory Rate Blood Pressure Blood Pressure Mean Blood Pressure Left Arm Blood Pressure Location Blood Pressure Position O2 Sat by Pulse Oximetry Oxygen Delivery Method Room Air Room Air Height Weight Telemetry Type Remote Telemetry Telemetry Monitoring Continues Telemetry Heart Rate 81 EKG PA Interval 0.15 EKG QRS Interval 0.07 Telemetry Strip Reading SR 04/22/23 01:57 04/22/23 02:00 04/22/23 03:00 Temperature 98.3 F Temperature Source Temporal Artery Scan Pulse Rate 92 Pulse Rate [Apical] Respiratory Rate 20 Blood Pressure 126/67 Blood Pressure Mean 86 Blood Pressure Left Arm Blood Pressure Location Right Arm Blood Pressure Position Supine O2 Sat by Pulse Oximetry 99 Oxygen Delivery Method Room Air Room Air Room Air Height Weight Telemetry Type Telemetry Monitoring Telemetry Heart Rate EKG PA Interval EKG QRS Interval Telemetry Strip Reading 04/22/23 04:00 04/22/23 05:00 04/22/23 05:24 Temperature 98.0 F Temperature Source Oral Pulse Rate 90 Pulse Rate [Apical] Respiratory Rate 18 Blood Pressure 145/82 H Blood Pressure Mean 103 Blood Pressure Left Arm Blood Pressure Location Left Arm Blood Pressure Position Supine O2 Sat by Pulse Oximetry 95 Oxygen Delivery Method Room Air Room Air Room Air Height Weight Telemetry Type Telemetry Monitoring Telemetry Heart Rate EKG PA Interval EKG QRS Interval Telemetry Strip Reading 04/22/23 05:25 04/22/23 05:56 04/22/23 07:00 Temperature Temperature Source Pulse Rate Pulse Rate [Apical] Respiratory Rate Blood Pressure Blood Pressure Mean Blood Pressure Left Arm Blood Pressure Location Blood Pressure Position O2 Sat by Pulse Oximetry Oxygen Delivery Method Room Air Height Weight 248 lb 1 oz Telemetry Type Remote Telemetry Telemetry Monitoring Continues Telemetry Heart Rate 89 EKG PA Interval 0.14 EKG QRS Interval 0.06 Telemetry Strip Reading SR 04/22/23 07:00 04/22/23 08:00 04/22/23 08:00 Temperature Temperature Source Pulse Rate Pulse Rate [Apical] Respiratory Rate Blood Pressure Blood Pressure Mean Blood Pressure Left Arm Blood Pressure Location Blood Pressure Position O2 Sat by Pulse Oximetry Oxygen Delivery Method Room Air Room Air Room Air Height Weight Telemetry Type Telemetry Monitoring Telemetry Heart Rate EKG PA Interval EKG QRS Interval Telemetry Strip Reading 04/22/23 08:43 04/22/23 09:00 04/22/23 09:42 Temperature Temperature Source Pulse Rate Pulse Rate [Apical] Respiratory Rate Blood Pressure Blood Pressure Mean Blood Pressure Left Arm Blood Pressure Location Blood Pressure Position O2 Sat by Pulse Oximetry Oxygen Delivery Method Room Air Room Air Height 5 ft 8 in Weight 248 lb 1 oz Telemetry Type Telemetry Monitoring Telemetry Heart Rate EKG PA Interval EKG QRS Interval Telemetry Strip Reading 04/22/23 09:42 Temperature 97.8 F Temperature Source Tympanic Pulse Rate 90 Pulse Rate [Apical] Respiratory Rate 18 Blood Pressure 125/74 Blood Pressure Mean 91 Blood Pressure Left Arm Blood Pressure Location Left Arm Blood Pressure Position Sitting O2 Sat by Pulse Oximetry 96 Oxygen Delivery Method Room Air Height Weight Telemetry Type Telemetry Monitoring Telemetry Heart Rate EKG PA Interval EKG QRS Interval Telemetry Strip Reading Lab Results Lab Results: Lab Results: Last 24 Hours 04/22/23 04/21/23 04/21/23 05:51 10:45 09:35 WBC 4.07 L RBC 3.91 L Hgb 13.1 L Hct 38.9 L MCV 99.5 H MCH 33.5 H MCHC 33.7 RDW Coeff of Alvarado 15.0 H Plt Count 51 L Immature Gran % (Auto) 0.2 Neut % (Auto) 59.0 Lymph % (Auto) 26.3 [place] % (Auto) 10.8 H Eos % (Auto) 3.2 Baso % (Auto) 0.5 Neut # (Auto) 2.4 Lymph # (Auto) 1.1 [place] # (Auto) 0.4 Eos # (Auto) 0.1 Baso # (Auto) 0.0 Immature Gran # (Auto) 0.0 Sodium 136.8 Potassium 3.44 L Chloride 102.0 Carbon Dioxide 30.7 H Anion Gap 7.54 BUN 11.2 Creatinine 0.94 Estimated GFR (MDRD) 84.00 BUN/Creatinine Ratio 11.91 Glucose 92.3 Calcium 8.14 L Total Bilirubin 4.19 H AST 118.0 H ALT 53.5 H Alkaline Phosphatase 104.1 Total Protein 6.82 Albumin 3.05 L Globulin 3.77 Albumin/Globulin Ratio 0.80 Urine Opiates Screen Negative Ur Oxycodone Screen Negative Urine Methadone Screen Negative Ur Barbiturates Screen Negative U Tricyclic Antidepress Negative Ur Phencyclidine Scrn Negative Ur Amphetamine Screen Negative U Methamphetamines Scrn Negative U Benzodiazepines Scrn Negative Urine Cocaine Screen Negative U Cannabinoids Screen Positive H SARS CoV-2 RNA Rapid ARVIN Negative Additional Comments Additional Comments: I have independently reviewed and interpreted the labs/EKGs/imaging ordered during this hospital stay. I have reviewed outside records that are available in our EMR that pertain to medical stay including imaging/notes/labs from previous visits. Active Medications Active Medications: Medications Generic Name Dose Route Start Last Admin Trade Name Freq PRN Reason Stop Dose Admin Acetaminophen 650 mg 04/21/23 12:16 Acetaminophen 325 Mg Tablet PO Q4H PRN Mild Pain Furosemide 40 mg 04/21/23 13:00 04/22/23 05:20 Furosemide Inj 40 Mg/4 Ml Vial IVP 40 mg Q8HR ZULEYMA Administration Sodium Chloride 1 syr 04/21/23 10:37 04/21/23 11:07 0.9% Sodium Chloride 10 Ml Disp.Syrin IVF 1 syr PRN PRN Administration To flush IV Sodium Chloride 1 syr 04/21/23 21:00 04/22/23 05:21 0.9% Sodium Chloride 10 Ml Disp.Syrin IVF 1 syr Q8HR ZULEYMA Administration Spironolactone 50 mg 04/22/23 09:00 04/22/23 08:47 Spironolactone 25 Mg Tablet PO 50 mg DAILY ZULEYMA Administration Tobramycin Sulfate 2 drop 04/21/23 17:00 04/22/23 08:50 Tobramycin Sulfate 5 Ml Opth Meggan EACHEYE 04/24/23 16:59 2 drop Q4HR ZULEYMA Administration Plan Plan: 1. Fluid retention in setting of cirrhosis with ascites - Improving, edema better today, continue lasix 40 mg Q8H, spironolactone 50 mg PO daily, checking echo for heart involvement, I&O, daily weight, 1800 fluid restriction with cardiac diet 2. Thrombocytopenia - follows with oncology in [place] 3. Bacterial Conjunctivitis - tobramycin gtts Q4H DVT Prophylaxis: Up with assist Review Statement Review Statement: I have personally discussed and reviewed the patient's visit/currently labs/imaging/decision making with Dr. Hernandez, my supervising attending. Greater that 50 minutes spent with patient, 50% of the time spent with this patient was devoted to counseling and coordination of care.
[2023-04-23] MEDS: TOBREX 0.3% EACHEYE SCH ×3 (02:14→08:41)
[2023-04-23] MEDS: LASIX IVP SCH (05:12)
[2023-04-23 05:17] VITALS: TEMP 97.8
[2023-04-23 05:54] LABS: BASOPHILS % (AUTO) 0.3 % (0.0-3.0); EOSINOPHILS # (AUTO) 0.1 K/ul (0.0-0.7); EOSINOPHILS % (AUTO) 3.7 % (0.0-7.0); HEMATOCRIT 39.1 % (42.0-52.0); HEMOGLOBIN 13.1 g/dl (14.0-18.0); IMMATURE GRANULOCYTE % (AUTO) 0.3 % (0.0-5.0); LYMPHOCYTES % (AUTO) 27.7 (10.0-50.0); MEAN CORPUSCULAR HGB CONC 33.5 (31.8-35.4); MEAN CORPUSCULAR VOLUME 98.5 fl (80.0-94.0); MONOCYTES # (AUTO) 0.4 K/uL (0.4-2.0); MONOCYTES % (AUTO) 9.6 (0-10); NEUTROPHILS # (AUTO) 2.2 K/ul (2.0-6.9); NEUTROPHILS % (AUTO) 58.4 % (42.2-75.2); PLATELET COUNT 50 10^3/uL (140-440); RDW COEFFICIENT OF VARIATION 14.9 % (11.6-14.8); RED BLOOD COUNT 3.97 10^6/ul (4.70-6.10); WHITE BLOOD COUNT 3.75 K/ul (4.2-10.2)
[2023-04-23 06:08] LABS: ALANINE AMINOTRANSFERASE 55.4 U/L (0-50); ALBUMIN 3.08 g/dL (3.5-5.0); ALKALINE PHOSPHATASE 111.8 U/L (38-126); ASPARTATE AMINO TRANSFERASE 133.4 U/L (17-59); BILIRUBIN,TOTAL 3.05 mg/dL (0.2-1.3); BLOOD UREA NITROGEN 11.9 mg/dL (9-20); CALCIUM 8.09 mg/dL (8.4-10.2); CARBON DIOXIDE 32.8 mmol/L (22-30.0); CHLORIDE 99.7 mmol/L (98-107); CREATININE 0.85 mg/dL (0.60-1.10); GLUCOSE 134.4 mg/dL (74-106); POTASSIUM 3.33 mmol/L (3.5-5.1); SODIUM 136.7 mmol/L (134.5-145); TOTAL PROTEIN 6.92 g/dL (6.3-8.2)
[2023-04-23] MEDS ORDERED: K-DUR PO ONE (08:38)
[2023-04-23] MEDS: ALDACTONE PO SCH (08:40)
--- NOTE | 2023-04-23 09:54 | DCSUM ---
Admission Date Admission Date: 04/21/23 Discharge Date Discharge Date: 04/23/23 Admission Diagnosis Admission Diagnosis: 1. Fluid retention in setting of cirrhosis with ascites 2. Thrombocytopenia 3. Bacterial Conjunctivitis Discharge Diagnosis Discharge Diagnosis: 1. Fluid retention in setting of cirrhosis with ascites - Improving 2. Thrombocytopenia - Stable 3. Bacterial Conjunctivitis - Improving Hospital Provider Hospital Provider: DARRELL CANALES, [facility]3]ist Group Summary of History and Physical Summary of History and Physical: 52 yo male presented to the ER today with complaints of worsening swelling. 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 States the only specialist he is seeing is an oncologist in the [place] area which is why he was here today to have some lab work done and decided he needed to be seen in the ER. He does not have a PCP and does not take any regular medications including diuretics. Had previously been living in a camper and now resides with his 91 yo grandmother that he reports is not a good situation. States he has constant pain in his back and abdomen. Has gained 40 lbs in a 2 month period. He was seen in our ER back in January in which he was setup with oncology at that time due to thrombocytopenia. He denies SOB, fever, chest pain, or other symptoms. Hospital Course Subjective: During course of stay, he received lasix 40 mg IVP Q8H and spironlactone 50 mg daily. Fluid retention improved minimally. Did not require oxygen during stay. Checked echo to rule out CHF. Negative for CHF. He was also treated for bacterial conjunctivitis with tobramycin drops. Has thrombocytopenia from cirrhosis - has oncologist in [place] that he follows with and has upcoming appointment. Stated he did not want to go home to his grandmother. Resources were given for plan for discharge. Appearance: Pleasant, No Apparent Distress and Alert HEENT: MMM, Supple and No JVD CVS: No Murmur and No Rubs Abdomen: Soft, Non-Tender and No Distention Respiratory: No Dyspnea Extremities: No Calf Tenderness Vital Signs: Most Recent Vital Signs Temperature 97.8 F 04/23/23 05:16 Temperature Source Temporal Artery Scan 04/23/23 05:16 Temperature Source Infrared 04/21/23 09:08 Pulse Rate 94 04/23/23 08:00 Respiratory Rate 18 04/23/23 08:00 Blood Pressure 105/56 L 04/23/23 05:16 Blood Pressure Mean 72 04/23/23 05:16 Blood Pressure Left Arm 145/86 04/21/23 12:12 Blood Pressure Location Left Arm 04/23/23 05:16 Blood Pressure Position Supine 04/23/23 05:16 O2 Sat by Pulse Oximetry 97 04/23/23 05:16 Oxygen Delivery Method Room Air 04/23/23 09:00 Height 5 ft 8 in 04/22/23 08:43 Weight 234 lb 7 oz 04/23/23 06:00 Telemetry Type Remote Telemetry 04/23/23 07:00 Telemetry Monitoring Continues 04/23/23 07:00 Telemetry Heart Rate 92 04/23/23 07:00 Telemetry SPO2 97 09/28/15 01:00 EKG MI Interval 0.16 04/23/23 07:00 EKG QRS Interval 0.08 04/23/23 07:00 Telemetry Strip Reading SR 04/23/23 07:00 Lab Results Last 24 Hours: 04/23/23 05:45 WBC 3.75 L RBC 3.97 L Hgb 13.1 L Hct 39.1 L MCV 98.5 H MCH 33.0 H MCHC 33.5 RDW Coeff of Alvarado 14.9 H Plt Count 50 L Immature Gran % (Auto) 0.3 Neut % (Auto) 58.4 Lymph % (Auto) 27.7 Bibb % (Auto) 9.6 Eos % (Auto) 3.7 Baso % (Auto) 0.3 Neut # (Auto) 2.2 Lymph # (Auto) 1.0 Bibb # (Auto) 0.4 Eos # (Auto) 0.1 Baso # (Auto) 0.0 Immature Gran # (Auto) 0.0 Sodium 136.7 Potassium 3.33 L Chloride 99.7 Carbon Dioxide 32.8 H Anion Gap 7.53 BUN 11.9 Creatinine 0.85 Estimated GFR (MDRD) 95.00 BUN/Creatinine Ratio 14.00 Glucose 134.4 H Calcium 8.09 L Total Bilirubin 3.05 H AST 133.4 H ALT 55.4 H Alkaline Phosphatase 111.8 Total Protein 6.92 Albumin 3.08 L Globulin 3.84 Albumin/Globulin Ratio 0.80 Discharge Instructions Discharge Planning: Discharge Planning > 40 minutes If patient is discharged with left ventricular systolic dysfunction: NA Discharged with a beta heike? [] If no, why not? [] Discharged with an indy/arb? [] If no, why not? [] 2L fluid restriction Activity as tolerated Start taking: Lasix 40 mg daily for fluid retention Spironolactone 50 mg daily for fluid retention Tobramycin drops for bacterial conjunctivitis (pink eye) - apply 2 drops to both eyes for 5 days [facility] Establish with PCP next week. Follow-up with your oncologist as previously scheduled. Discharge Medications: Medications at Discharge (Home Meds & RX) furosemide 40 mg tablet 40 mg PO DAILY #30 tabs 04/23/23 spironolactone 50 mg tablet 50 mg PO DAILY #30 tabs 04/23/23 tobramycin 0.3 % eye drops 2 drp ophthalmic (eye) Q4HR 5 days #1 ea 04/23/23 Discharge Plan Discharge Discharge Orders: Discharge Patient (ONCE); Ordered 04/23/23 Ordered By: RODRIGO ROGEL Activity Restrictions/Additional Instructions: 2L fluid restriction Activity as tolerated Start taking: Lasix 40 mg daily for fluid retention Spironolactone 50 mg daily for fluid retention Tobramycin drops for bacterial conjunctivitis (pink eye) - apply 2 drops to both eyes for 5 days [facility] Shelters with availability: [facility] Establish with PCP next week. Follow-up with your oncologist as previously scheduled. Instructions: Cirrhosis of the Liver (GEN), Ascites (GEN), Conjunctivitis (GEN) Patient Disposition: HOME SELF-CARE Prescriptions: New spironolactone 50 mg tablet 50 mg PO DAILY Qty: 30 0RF tobramycin 0.3 % Drops 2 drp ophthalmic (eye) Q4HR 5 Days Qty: 1 0RF furosemide 40 mg tablet 40 mg PO DAILY Qty: 30 0RF Did you review [place] [employer] for ALL controlled substances?: No Discussed opioids are addictive and Narcan is available by prescription or from pharmacy.: No Condition: Fair
[2023-04-23 10:35] VITALS: BP 120/67; PULSE 89; RESP 16
--- NOTE | 2023-04-24 16:16 | ECHO2D ---
Date of Exam: 04/22/2023 Ordering Physician: HOSPITALIST--Tyree ROGEL NP Room #: [id number] Reason for Echo: SOB, FLUID RETENTION M-Mode Normal Adult Results LV Dimensions Normal Adult Results AoV Opening excursions >1.6 >1.6 LVEDD-base- 3.5-5.8 4.7 Ao root dimensions 2.0-3.7 3.7 LVESD-base- 3.1-4.6 L. Atrium dimensions 1.9-3.8 5.2 Post. Wall thickness 0.8-1.1 1.3 IV septum (thickness) 0.7-1.2 1.3 Post. Wall excursion 0.72-1.3 NORMAL Septal motion NORMAL Systolic motion R. Ventricular cavity 1.5-2.0 NORMAL LVEF 60% 58% Paradoxical septal wall motion NORMAL 2-D : 2-D M Mode Echocardiogram was performed using apical four chamber and left parasternal long and short axis views. Mitral, tricuspid and aortic valves appear to be normal. Contractility of the left ventricle seems to be normal, so is the cavity size. ENLARGED LEFT ATRIAL CAVITY SIZE. Aortic root appears to be normal. There is no pericardial effusion. There is no thrombus noted in the left ventricle or left atrial cavity. M-MODE: MV: NORMAL AV: NORMAL TV: NORMAL PV: CHAMBER SIZE: ENLARGED LEFT ATRIAL CAVITY WALL MOTION: NORMAL PERICARDIUM: NORMAL INTERPRETATION: 1. LEFT VENTRICLE HYPERTROPHY WITH ENLARGED LEFT ATRIAL CAVITY 2. NORMAL VALVES 3. NORMAL LEFT VENTRICLE CAVITY SIZE AND CONTRACTILITY MTDD
== END 2023-04-23 12:50 | disposition home or self-care (01) ==
LOC: ED 09:04 → MEDSURG B 11:25 → OBSVTOIN 11:25 → INTOOBSV 11:25 → MEDSURG B 12:15
PROVIDERS: ADMIT Hospitalist; ATTEND Nurse Practitioner Family
DX: K74.69 Other cirrhosis of liver; F10.11 Alcohol abuse, in remission; R06.02 Shortness of breath; B19.20 Unspecified viral hepatitis C without hepatic coma; F15.11 Other stimulant abuse, in remission; K76.6 Portal hypertension; R18.8 Other ascites; D69.6 Thrombocytopenia, unspecified; Z20.822 Contact with and (suspected) exposure to COVID-19; H10.33 Unspecified acute conjunctivitis, bilateral; F17.210 Nicotine dependence, cigarettes, uncomplicated